=== PATIENT | male | born 1995 | race Asian ===

== ENCOUNTER 2017-06-22 11:59 | Emergency (ER) | payer OTHER ==
[~2017-06-22] VITALS: Ht 170.2 cm; Wt 77.3 kg
[~2017-06-22 11:59] MED LIST: CNC/18 PO; IBUP-1050 PO
[2017-06-22 12:05] VITALS: TEMP 36.9; Ht 170.2 cm; Wt 77.3 kg
[2017-06-22] MEDS ORDERED: ONDANSETRON INJ 2 MG/ML 2 ML VIAL IV STA (12:17)
[2017-06-22] MEDS ORDERED: SODIUM CHLORIDE 0.9% 1000ML 1,000 ML IV STA (12:17)
[2017-06-22] MEDS ORDERED: CNC/36 PO (12:38)
--- NOTE | 2017-06-22 13:05 | DIAGNOSTIC IMAGING REPORT ---
HEAD WITHOUT CONTRAST (CT) CLINICAL HISTORY: 21 years-old Male presenting with hit head, lightheaded, nausea, loss of balance, head trauma. TECHNIQUE: Multidetector CT imaging of the head was performed without the use of intravenous contrast. IV contrast: None. A dose lowering technique was used consistent with the principles of ALARA (as low as reasonably achievable). COMPARISON: None. CT DOSE (mGy.cm): The estimated cumulative dose is 729.78 mGycm. FINDINGS: Bottomer Operator topogram: Unremarkable. Ventricles and sulci normal in size. Brain parenchyma normal in appearance with preserved rivera-white differentiation. No mass effect or midline shift. No hemorrhage or acute territorial infarct. No extra-axial fluid collection. Paranasal sinuses and mastoid air cells clear. Calvarium intact. IMPRESSION: 1. No acute intracranial pathology. Electronically signed by: Galen Smith M.D. 06/22/2017 1:04 PM Dictated Date/Time: 06/22/2017 1:02 PM
[2017-06-22] MEDS ORDERED: ONDA4TAB65 PO (13:40)
[2017-06-22 14:10] VITALS: BP 140/84; PULSE 58; O2SAT 99
--- NOTE | 2017-06-22 18:48 | EMERGENCY ROOM VISIT NOTE ---
History Report prepared by Summer[place]marcy: Aleisha Bowling Under the Supervision of: Shannon RickettsO. First contact with patient: 12:11 Chief Complaint: HEADACHE Stated Complaint: HEADACHE, NAUSEA, LOSS OF BALANCE History of Present Illness The patient is a 21 year old male who presents to the Emergency Room with complaints of a sudden head injury that occurred two days ago. He currently rates his discomfort as a 7/10 in severity. The patient states that two days ago he fell and hit the back of his head. He states that he has intermittently been experiencing lightheadedness, nausea, and a headache since the fall. The patient states that he hit his head on the ground, noting that he hit the dirt. He denies any loss of consciousness. The patient states that his pain waxes and wanes between dull and pounding. He additionally reports intermittent weakness all over. Pt denies change in vision, fevers, chest pain, shortness of breath, vomiting, diarrhea, pain with urination, and melena. Source of History: patient Onset: two days ago Position: head Symptom Intensity: 7/10 Quality: dull, other (throbbing) Timing: waxes/wanes Associated Symptoms: + nausea, No LOC Note: Associated symptoms: lightheadedness Review of Systems See HPI for pertinent positives & negatives. A total of 10 systems reviewed and were otherwise negative. Past Medical & Surgical Medical Problems: (1) Asthma (2) Bronchitis Family History Diabetes mellitus Hypertension Social History Smoking Status: Current Some Day Smoker Alcohol Use: occasionally Drug Use: none Marital Status: in relationship Housing Status: lives with roommate Occupation Status: [employer] student Current/Historical Medications Scheduled Methylphenidate Hcl (Concerta), 36 MG PO DAILY Scheduled PRN Ondansetron Hcl (Zofran), 4 MG PO TID PRN for Nausea Allergies Coded Allergies: No Known Allergies (Unverified , 12/15/15) Physical Exam Vital Signs Date Time Temp Pulse Resp B/P (MAP) Pulse Ox O2 Delivery O2 Flow Rate FiO2 06/22/17 14:10 58 18 140/84 99 06/22/17 14:00 59 18 140/84 99 Room Air 06/22/17 12:05 36.9 65 20 147/87 97 Room Air Physical Exam GENERAL: alert, well appearing, well nourished, no distress, non-toxic HEAD: Minimal tenderness at the base of the occiput EYE EXAM: normal conjunctiva, PERRL and EOM's grossly intact OROPHARYNX: no exudate, no erythema, lips, buccal mucosa, and tongue normal and mucous membranes are moist EARS: TMs clear b/l NECK: supple, no nuchal rigidity, no adenopathy, non-tender CHEST: stable to compression anteriorly and posteriorly LUNGS: clear to auscultation. Normal chest wall mechanics HEART: no murmurs, S1 normal and S2 normal ABDOMEN: abdomen soft, non-tender, normo-active bowel sounds, no masses, no rebound or guarding. PELVIS: stable to compression anteriorly and posteriorly BACK: Back is symmetrical on inspection and there is no deformity, no midline tenderness, no CVA tenderness. UPPER EXTREMITIES: full active and passive range of motion of all joints without tenderness to palpation LOWER EXTREMITIES: full active and passive range of motion of all joints without tenderness to palpation NEURO EXAM: Normal sensorium, cranial nerves II-XII intact, normal speech, no weakness of arms, no weakness of legs. GCS: 15. Medical Decision & Procedures ER Provider Diagnostic Interpretation: CT:Per my review, radiologist interpretation. HEAD WITHOUT CONTRAST (CT) CLINICAL HISTORY: 21 years-old Male presenting with hit head, lightheaded, nausea, loss of balance, head trauma. TECHNIQUE: Multidetector CT imaging of the head was performed without the use of intravenous contrast. IV contrast: None. A dose lowering technique was used consistent with the principles of ALARA (as low as reasonably achievable). COMPARISON: None. CT DOSE (mGy.cm): The estimated cumulative dose is 729.78 mGycm. FINDINGS: Ginner topogram: Unremarkable. Ventricles and sulci normal in size. Brain parenchyma normal in appearance with preserved rivera-white differentiation. No mass effect or midline shift. No hemorrhage or acute territorial infarct. No extra-axial fluid collection. Paranasal sinuses and mastoid air cells clear. Calvarium intact. IMPRESSION: 1. No acute intracranial pathology. Electronically signed by: Galen Smith M.D. 06/22/2017 1:04 PM Dictated Date/Time: 06/22/2017 1:02 PM Medications Administered Medications (Trade) Dose Ordered Sig/Yunior Route Start Time Stop Time Status Last Admin Dose Admin Sodium Chloride 1,000 ml @ 999 mls/hr Q1H1M STAT IV 06/22/17 12:17 06/22/17 13:17 DC 06/22/17 12:45 999 MLS/HR Ondansetron HCl (Zofran Inj) 4 mg NOW STAT IV 06/22/17 12:17 06/22/17 12:19 DC 06/22/17 12:46 4 MG ED Course ED COURSE: Vital signs were reviewed and showed hypertensive The patients medical record was reviewed The above diagnostic studies were performed and reviewed. ED treatments and interventions as stated above. 1213: The patient was evaluated in room C2B. A complete history and physical examination was performed. 1217: Ordered Zofran Inj 4 mg IV, Sodium Chloride 1000 ml @ 999 mls/hr IV. 1337: Upon reevaluation, the patient is doing well.I discussed my findings with the patient and he understands and agrees with the treatment plan. Based on the patients age, coexisting illnesses, exam and lab findings the decision to treat as an outpatient was made. The patient remained stable while under my care. The patient appeared well at the time of discharge. Medical Decision Differential diagnoses include major intracranial, cervical, spinal, thoracic, abdominal, pelvic and neurologic injury. Fracture, contusion, sprain, strain, laceration, abrasions included as well. Patient is a 21-year-old male who presents to ER following hitting his head 2 days ago. He notes he has had a fairly persistent headache and nausea off and on. He is completely neurologically intact on exam. CT head was unremarkable. IV was established and was given fluids, Zofran and Toradol with improvement of his symptoms. Patient was updated at bedside. I favor this is likely a concussion. And shortly him know returned any physical activity until cleared by PCP/[facility]. Discussed with Pt concerning signs and symptoms to watch out for. Pt was instructed to follow up with their PCP and discussed with the patient their option to return to the ED at anytime for persistent or worsening symptoms. The appropriate anticipatory guidance and out-patient management, including indications for return to the emergency department, were explained at length to the patient and understood. Medication Reconcilliation Current Medication List: was personally reviewed by me Blood Pressure Screening Patient's blood pressure: Elevated blood pressure Blood pressure disposition: Elevated BP felt to be situational, Did not require urgent referral Impression Primary Impression: Concussion Scribe Attestation The scribe's documentation has been prepared under my direction and personally reviewed by me in its entirety. I confirm that the note above accurately reflects all work, treatment, procedures, and medical decision making performed by me. Departure Information Dispostion Home / Self-Care Prescriptions Ondansetron Hcl (ZOFRAN) 4 Mg Tab 4 MG PO TID Y for Nausea, #30 TAB Prov: Dorian Ramirez, DO 06/22/17 Referrals No Doctor, Assigned (PCP) [facility] Forms HOME CARE DOCUMENTATION FORM, IMPORTANT VISIT INFORMATION Patient Instructions ED Concussion, My [facility] Additional Instructions Please follow up with your primary care doctor or if you are a student, [facility] with in the next 24 hours. Any worsening of your symptoms, please return to the ED immediately. This includes any fevers greater than 100.4, worsening pain, persistent nausea, vomiting, unable to eat or drink , or any other concerning signs or symptoms from your standpoint. Please take Tylenol or Motrin as needed for pain. Problem Qualifiers Primary Impression: Concussion Encounter type: initial encounter Loss of consciousness presence/duration: without LOC Qualified Codes: S06.0X0A - Concussion without loss of consciousness, initial encounter
== END 2017-06-22 14:12 | disposition home or self-care (01) ==
LOC: C.EDB 12:00 → C.EDC 14:12
DX: S06.0X0A Concussion without loss of consciousness, initial encounter (principal); R51 Headache; R11.0 Nausea; R42 Dizziness and giddiness; J45.909 Unspecified asthma, uncomplicated; Z79.899 Other long term (current) drug therapy; Z87.09 Personal history of other diseases of the respiratory system; Z82.49 Family history of ischemic heart disease and other diseases of the circulatory system; Z83.3 Family history of diabetes mellitus; F17.200 Nicotine dependence, unspecified, uncomplicated; W19.XXXA Unspecified fall, initial encounter